=== PATIENT | female | born 1980 | race Caucasian/White ===

== ENCOUNTER 2016-08-09 08:52 | Emergency (ER) | payer BC ==
[2016-08-09 09:29] LABS: UA SPECIFIC GRAVITY 1.025 (1.005-1.035); microscopic required? YES; urine erythrocyte 3+ (NEGATIVE)
[2016-08-09 09:38] LABS: BASOPHIL % 0.7 % (0-2); PLATELET COUNT 290 x10^3mcL (130-400)
[2016-08-09 09:45] LABS: RED CELL DISTRIBUTION WIDTH 15.5 % (11.5-14.5)
[2016-08-09 13:04] VITALS: BP 128/71
== END 2016-08-09 12:00 | disposition home or self-care (01) ==
LOC: ED 08:52
PROVIDERS: Emergency Medicine
DX: N88.8 Other specified noninflammatory disorders of cervix uteri (principal); R31.9 Hematuria, unspecified
CPT/HCPCS: J1885; J7030